=== PATIENT | female | born 1975 | race African-American/Black ===

== ENCOUNTER 2017-09-18 01:43 | Emergency (ER) | payer MEDICAID, OTHER ==
[~2017-09-18] VITALS: Ht 162.6 cm; Wt 80.0 kg
[2017-09-18 02:40] VITALS: BP 139/91
== END 2017-09-18 03:10 | disposition home or self-care (01) ==
LOC: EMS 01:44
DX: M62.838 Other muscle spasm (principal); F12.90 Cannabis use, unspecified, uncomplicated; F17.210 Nicotine dependence, cigarettes, uncomplicated
CPT/HCPCS: 99283; 99406

== ENCOUNTER 2018-11-21 05:58 | Emergency (ER) | payer OTHER ==
[~2018-11-21] VITALS: Ht 162.6 cm; Wt 70.5 kg
[2018-11-21] MEDS ORDERED: ACETAMINOPHEN 500 MG TABLET PO ONE (06:30)
[2018-11-21 07:30] VITALS: BP 129/89
== END 2018-11-21 07:38 | disposition home or self-care (01) ==
LOC: EMS 05:58
DX: S93.402A Sprain of unspecified ligament of left ankle, initial encounter (principal); F17.210 Nicotine dependence, cigarettes, uncomplicated; F12.90 Cannabis use, unspecified, uncomplicated; X50.1XXA Overexertion from prolonged static or awkward postures, initial encounter; Y93.89 Activity, other specified; Y92.89 Other specified places as the place of occurrence of the external cause; Y99.8 Other external cause status
CPT/HCPCS: 99406

== ENCOUNTER 2020-05-30 11:03 | Emergency (ER) | payer OTHER ==
[~2020-05-30] VITALS: Ht 162.6 cm; Wt 75.0 kg
[2020-05-30] MEDS ORDERED: CYCL10 PO (11:10)
[2020-05-30] MEDS ORDERED: IBUP-1506 PO (11:10)
[2020-05-30] MEDS ORDERED: GABA-1181 PO (11:10)
[2020-05-30] MEDS ORDERED: LIDOCAINE 5% TRANSDERMAL PATCH TD ONE (12:45)
[2020-05-30] MEDS ORDERED: HYDROCODONE/ACETAMINOPHEN 5-325 MG TABLET PO ONE (13:30)
[2020-05-30 13:34] VITALS: BP 149/98
== END 2020-05-30 13:43 | disposition home or self-care (01) ==
LOC: EMS 11:08
DX: M54.41 Lumbago with sciatica, right side (principal); F17.210 Nicotine dependence, cigarettes, uncomplicated; F12.90 Cannabis use, unspecified, uncomplicated
CPT/HCPCS: 99283

== ENCOUNTER 2024-04-12 15:10 | Emergency (ER) | payer MEDICAID, OTHER ==
[~2024-04-12] VITALS: Ht 162.6 cm; Wt 71.8 kg
[~2024-04-12 15:10] MED LIST: CYCL-448 PO; GABA-1181 PO; IBUP-1506 PO
[2024-04-12 15:24] VITALS: TEMP 98.1
[2024-04-12] MEDS: ERYTHROMYCIN 0.5% 3.5 GM TUBE OPHTHALMIC OINTMENT OS ONE (18:00)
[2024-04-12 18:14] VITALS: BP 152/87; PULSE 71; RESP 18; O2SAT 100
== END 2024-04-12 18:30 | disposition home or self-care (01) ==
LOC: EMS 15:14
DX: H00.015 Hordeolum externum left lower eyelid (principal); F17.210 Nicotine dependence, cigarettes, uncomplicated; Z91.018 Allergy to other foods
CPT/HCPCS: 99283